=== PATIENT | female | born 1970 | race Caucasian/White ===

== ENCOUNTER 2020-01-02 12:54 | Emergency (ER) | payer OTHER, SELFPAY ==
[~2020-01-02] VITALS: Ht 157.5 cm; Wt 59.0 kg
[2020-01-02 12:59] VITALS: BP 122/71
--- NOTE | 2020-01-02 13:01 | NUR ---
PT AMBULATED TO TENT FROM AMBULANCE [facility]
--- NOTE | 2020-01-02 13:11 | NUR ---
TAKEN TO XRAY VIA WHEELCHAIR
--- NOTE | 2020-01-02 13:29 | NUR ---
49 Y/O FEMALE BIBA C/O CHEST TIGHTNESS AND SOB X2 DAYS. PT TEST POSITIVE FOR COVID YESTERDAY. RESP EVEN AND UNLABORED. LUNG SOUNDS ARE CLEAR IN BILAT LOBES . SKIN COOL/DRY. PT IS AFEBRILE. DENIES ANY N/V/D. PMH: ANXIETY NKA
[2020-01-02 14:41] VITALS: BP 122/71
--- NOTE | 2020-01-02 14:41 | NUR ---
Patient discharged with v/s stable. Written and verbal after care instructions given and explained. Patient alert, oriented and verbalized understanding of instructions. Ambulatory with steady gait. All questions addressed prior to discharge. ID band removed. Patient advised to follow up with PMD. Rx of PROMETHAZINE 6.25MG AND ALBUTEROL 90MCG given. Patient educated on indication of medication including possible reaction and side effects. Opportunity to ask questions provided and answered.
== END 2020-01-02 14:41 | disposition home or self-care (01) ==
LOC: MED 12:54 → EEVIPCON 12:54 → MED 14:41
DX: R05 Cough (principal); R50.9 Fever, unspecified; Z20.828 Contact with and (suspected) exposure to other viral communicable diseases; F41.9 Anxiety disorder, unspecified; F32.9 Major depressive disorder, single episode, unspecified; I83.90 Asymptomatic varicose veins of unspecified lower extremity
CPT/HCPCS: 36600; 71045; 82803; 99284